=== PATIENT | male | born 1960 | race Caucasian/White ===

== ENCOUNTER 2017-02-23 19:41 | Emergency (ER) | payer OTHER ==
[~2017-02-23] VITALS: Ht 182.9 cm; Wt 119.1 kg
[2017-02-23 20:42] LABS: MCH 29.5 PG (29.0-34.0); MCV 89.4 FL (86-99); MEAN PLAT.VOLUME 9.7 uM^3 (9.0-12.4); PLATELET COUNT 287 K/uL (156-360); RBC DIS.WIDTH-CV 12.5 % (11.8-14.6); RBC DIS.WIDTH-SD 41.1 % (39-53); RED BLOOD COUNT 4.92 M/uL (4.00-5.50); WHITE BLOOD COUNT 14.1 K/uL (4.1-10.2)
[2017-02-23 21:19] LABS: CHLORIDE 104 mEq/L (99-109); POTASSIUM 4.1 mEq/L (3.7-5.4); SODIUM 141 mEq/L (136-147)
[2017-02-23 21:21] LABS: GLUCOSE 111 mg/dL (70-99)
[2017-02-23 21:22] LABS: ANION GAP 11 MEQ/L (2-14)
[2017-02-23 21:23] LABS: TOTAL BILIRUBIN 0.4 mg/dL (0.0-1.0)
[2017-02-23 21:24] LABS: ALKALINE PHOSPHATASE 76 IU/L (3-129)
[2017-02-23 21:25] LABS: GFR ESTIMATE (CALCULATED) 56 mL/min/
[2017-02-23 21:26] LABS: UREA NITROGEN (BUN) 20 mg/dL (9-23)
[2017-02-23] MEDS ORDERED: CLEOCIN300 MG PO (21:41)
[2017-02-23] MEDS ORDERED: NORCO 5/3251 TABLET PO (21:41)
[2017-02-23 22:45] VITALS: BP 114/71
== END 2017-02-23 22:55 | disposition home or self-care (01) ==
LOC: EXP 19:41 → EME 19:41 → EXP 22:55
PROVIDERS: Physician Assistant
DX: L02.511 Cutaneous abscess of right hand (principal); L03.113 Cellulitis of right upper limb
CPT/HCPCS: 80053; 85027; 87070; 87075; 87077; 87147; 87186; 87205; 99281; 99284; J1885; J7030